=== PATIENT | male | born 1980 | race Caucasian/White ===

== ENCOUNTER 2017-10-18 21:26 | Emergency (ER) | payer OTHER ==
[~2017-10-18] VITALS: Ht 188 cm; Wt 127.0 kg
[~2017-10-18 21:26] MED LIST: DIPH25CA39 PO; PRED-188 PO; RANI-185 PO
== END 2017-10-18 21:33 | disposition expired ==
LOC: MERGE 21:26 → ER 21:26 → EDBD 21:26 → ER 21:33
DX: I46.9 Cardiac arrest, cause unspecified (principal)
CPT/HCPCS: 92950